=== PATIENT | male | born 1955 | race Two or more races ===

== ENCOUNTER 2019-05-19 01:39 | Inpatient (IN) | payer OTHER ==
[~2019-05-19] VITALS: Ht 165.1 cm; Wt 82.6 kg
--- NOTE | 2019-05-19 01:42 | NUR ---
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 PT AAOX4 NO ACUTE DISTRESS NOTED, RESP EVEN AND UNLABORED. SKIN WARM, NONDIAPHORETIC. PLACE PT ON CARDIAC MONITORING, CONTINUOUS POX. PENDING ER MD [place].
--- NOTE | 2019-05-19 01:54 | NUR ---
ER MD AT BEDSIDE TO EVAL PT WITH ORDERS RECEIVED.
[2019-05-19 02:17] LABS: BASOPHILS # (AUTO) 0.1 /CMM (0.0-0.2); BASOPHILS % (AUTO) 0.8 % (0.0-2.0); EOSINOPHILS % (AUTO) 3.2 % (0.0-6.0); HEMATOCRIT 46 % (39-51); HEMOGLOBIN 15.2 g/dL (13.5-17.5); LYMPHOCYTES # (AUTO) 2.5 /CMM (0.8-4.8); LYMPHOCYTES % (AUTO) 21.8 % (20.0-44.0); MEAN CORPUSCULAR HGB CONC 33 g/dl (31.0-36.0); MEAN CORPUSCULAR VOLUME 88 fL (80-96); MONOCYTES % (AUTO) 8.8 % (2.0-12.0); NEUTROPHILS # (AUTO) 7.4 /CMM (1.8-8.9); NEUTROPHILS % (AUTO) 65.4 % (43.0-81.0); PLATELET COUNT (AUTO) 426 /CMM (150-450); RED BLOOD CELL COUNT(AUTO) 5.15 MIL/uL (4.5-6.0); WHITE BLOOD COUNT (AUTO) 11.3 K/uL (4.3-11.0)
--- NOTE | 2019-05-19 02:18 | NUR ---
PT TRANSPORTED TO RADIOLOGY FOR CT HEAD.
[2019-05-19 02:28] LABS: CALCIUM, SERUM 8.8 mg/dL (8.5-10.1); CARBON DIOXIDE 24 mmol/L (21-32); CHLORIDE 104 mmol/L (98-107); CREATININE 0.9 mg/dL (0.6-1.3); GLUCOSE 123 mg/dL (74-106); POTASSIUM 4.2 mmol/L (3.5-5.1); SODIUM SERUM 140 mmol/L (136-145); UREA NITROGEN, BLOOD 19 mg/dL (7-18)
--- NOTE | 2019-05-19 02:30 | NUR ---
PT BACK FROM RADIOLOGY. PENDING CT HEAD RESULT.
[2019-05-19] MEDS ORDERED: DEXTROSE 50%-WATER 50 ML DISP.SYRIN IV PRN (04:30)
--- NOTE | 2019-05-19 04:45 | NUR ---
REPORT CALLED TO MELT SUPERINTENDANTMAREK TORRES. WILL TRANSPORT PT VIA ACLS PROTOCOL.
[2019-05-19 05:02] VITALS: BP 134/71
--- NOTE | 2019-05-19 05:05 | NUR ---
electrogalvanizing machine operatordirector of social services notes Received Pt from ER nurse ED, RN. Pt arrived at the unit by griselda via ACLS protocol. Pt's chief complaint is L arm pain and chest pain. Pt is alert and oriented X4. Respiration is normal. NO SOB. Pt denies any pain or discomfort at this time. Pt able to moved his legs and moved both of his arm without any difficulty. Pt speaks clear without any difficulty. Pt tolerated activity well. IV sites at LAC # 18g is intact, patent and SL. Pt's recent blood glucose was 106. Skin assessment done. All belongings checked by YOJANA Ramachandran. Safety precautions is maintained. Instructed to call. Bed at low position, brakes on, Side rails upX2 and call light is within reach.
[2019-05-19 05:27] LABS: CHOLESTEROL 89 mg/dL (<200); HDL CHOLESTEROL 27 mg/dL (40-60); LDL 46 mg/dL (0-99); THYROID STIMULATING HORMONE 10.079 uIU/mL (0.358-3.74); TRIGLYCERIDES 174 mg/dL (30-150)
[2019-05-19] MEDS ORDERED: LOSA50TA39 PO (06:52)
[2019-05-19] MEDS ORDERED: CLOP75TA15 PO (06:52)
[2019-05-19] MEDS ORDERED: METO-356 PO (06:52)
--- NOTE | 2019-05-19 07:00 | NUR ---
paint preparer closing notes Pt is resting in bed comfortably. Awaken easily. Respiration is normal. NO SOB. Pt denies any pain or discomfort at this time. No nausea or vomiting. IV sites at LAC is intact, patent and SL. VS is stable. Pt is on school lunch monitor - SR with PJC at 77 bpm. Stroke education and handbook given. Safety precautions is maintained. Instructed to call. Bed at low position and call light is within reach. Will endorse to morning nurse for [place].
[2019-05-19] MEDS: BLOOD SUGAR DIAGNOSTIC 1 EACH STRIP IN SCH ×4 (07:33→21:11)
--- NOTE | 2019-05-19 07:34 | NUR ---
MEASUREMENT SUPERVISOR OPENING NOTES RECEIVED PT LAYING IN BED, AWAKE. PT IS A/O X4, AFEBRILE. RESPIRATIONS ARE EVEN AND UNLABORED, NOT IN ANY ACUTE DISTRESS NOTED. PUPILS ARE REACTIVE TO LIGHT, BILATERAL HAND STUDENT COUNSELOR ARE STRONG AND EQUAL. DENIES ANY PAIN AT THIS TIME, NO C/O SOB, N/V. IV SITE TO LAC G18 INTACT, NO INFILTRATION NOTED. DRESSING KEPT CLEAN AND DRY. SAFETY MEASURES ARE IN PLACE. INSTRUCTED PT TO USE CALL LIGHT WHEN ASSISTANCE IS NEEDED, CALL LIGHT IS LEFT WITHIN REACH. WILL MONITOR THROUGHOUT SHIFT FOR CONTINUITY OF CARE. Addendum: 05/19/19 at 0738 by ANDREINA GARCIA RN CORRECTION: PT NOTED WITH LEFT SIDED WEAKNESS. PER PT HE HAS SIGNIFICANT MEDICAL HX OF STROKE. HOWEVER PT STATES THAT HE CAN WALK. INSTRUCTED PT TO USE CALL LIGHT WHEN ASSISTANCE IS NEEDED FOR SAFETY REASONS. PT VERBALLY AGREED.
[2019-05-19 08:00] VITALS: BP 128/77
[2019-05-19] MEDS: ASPIRIN 81 MG TAB.CHEW PO SCH (08:46)
[2019-05-19] MEDS ORDERED: PANT20TA3 PO (09:05)
[2019-05-19] MEDS ORDERED: ATOR20TA PO (09:05)
[2019-05-19] MEDS ORDERED: METF-442 PO (09:05)
[2019-05-19] MEDS ORDERED: METO25TA6 PO (09:05)
[2019-05-19] MEDS ORDERED: ASPI-1152 PO (09:05)
[2019-05-19] MEDS: INSULIN REGULAR, HUMAN 100 UNIT/ML 3 ML VIAL SQ PRN ×2 (11:29→21:14)
--- NOTE | 2019-05-19 15:30 | NUR ---
MS RN NOTES-- PT SEEN AND EXAMINED BY DR. DEIRDRE NICK.
[2019-05-19 16:00] VITALS: BP 129/81
--- NOTE | 2019-05-19 16:30 | NUR ---
MS RN NOTES-- PT SEEN AND EXAMINED BY DR. ROMERO.
[2019-05-19] MEDS: METOPROLOL TARTRATE 25 MG TABLET PO SCH (16:42)
[2019-05-19] MEDS ORDERED: IOHEXOL-350 100 ML VIAL IV ONE (18:57)
[2019-05-19] MEDS ORDERED: IV NS 0.9% 250 ML IV ONE (18:57)
[2019-05-19] MEDS ORDERED: CT SWABBABLE VALVE TRANS SET 1 EA INFUS.SET MC ONE (18:57)
--- NOTE | 2019-05-19 19:05 | NUR ---
RN NOTES-- CONSENTS SIGNED FOR CTA BRAIN. PT P/U BY RADIOLOGY FOR CTA BRAIN IN STABLE CONDITION VIA WHEELCHAIR.
--- NOTE | 2019-05-19 19:15 | NUR ---
MS RN NOTES-- PT CAME BACK FROM RADIOLOGY IN STABLE CONDITION VIA W/C.
--- NOTE | 2019-05-19 19:20 | NUR ---
MS RN CLOSING NOTES PT ABLE TO MAKE NEEDS KNOWN. NEEDS MET AND RENDERED. PT IS A/O 4, AFEBRILE. RESPIRATIONS ARE EVEN AND UNLABORED, NOT IN ANY ACUTE DISTRESS NOTED. PT DENIES ANY PAIN AT THIS TIME, NO C/O SOB, N/V. IV SITE TO LAC INTACT, NO INFILTRATION NOTED. DRESSING KEPT CLEAN AND DRY. SAFETY MEASURES ARE IN PLACE. REMINDED PT TO USE CALL LIGHT WHEN ASSISTANCE IS NEEDED, CALL LIGHT IS LEFT WITHIN REACH. ENDORSED TO NEXT SHIFT FOR CONTINUITY OF CARE.
--- NOTE | 2019-05-19 19:25 | NUR ---
MS RN OPENING NOTES: RECEIVED PT ON ROOM AIR AND IS TOLERATING WELL. NO SOB NOTED. NO S/S OF DISTRESS. IV ON LAC #18G REMAINS INTACT. CURRENTLY H/L. BED KEPT IN LOW, LOCKED POSITION, AND SIDE RAILS X 2UP. WILL CONTINUE TO MONITOR PT.
[2019-05-19 20:16] VITALS: BP 130/75
--- NOTE | 2019-05-19 20:37 | NUR ---
MS RN NOTES: NOTIFIED WATCH TECHNICIAN KATERNI FABIAN THAT PT IS COMPLAINING OF 7/10 TOOTH PAIN. GOT ORDER FOR IBUPROFEN 600MG PO Q6HR PAIN.
[2019-05-19] MEDS: IBUPROFEN 600 MG TABLET PO PRN (21:11)
--- NOTE | 2019-05-19 21:17 | NUR ---
MS RN NOTES: BLOOD SUGAR THIS PM WAS 139. 2 UNITS OF INSULIN WAS ADMINISTERED. SNACKS PROVIDED WELL. WILL CONTINUE TO MONITOR.
[2019-05-19] MEDS ORDERED: ATORVASTATIN 40 MG TABLET PO SCH ×2 (22:00)
[2019-05-20] MEDS: BLOOD SUGAR DIAGNOSTIC 1 EACH STRIP IN SCH ×2 (06:33→11:41)
--- NOTE | 2019-05-20 06:45 | NUR ---
MS RN CLOSING NOTES: ALL NEEDS WERE ATTENDED AND ANTICIPATED FOR. PT ASLEEP AT THIS TIME AND RESTING COMFORTABLY. NO SOB NOTED. NO S/S OF DISTRESS. IV REMAINS INTACT. CURRENTLY H/L. BED KEPT IN LOW, LOCKED POSITION, AND SIDE RAILS X 2UP. BLOOD SUGAR THIS AM WAS 118. NO INSULIN WAS ADMINISTERED. WILL ENDORSE TO AM NURSE FOR [place].
[2019-05-20 07:16] LABS: BASOPHILS % (AUTO) 0.5 % (0.0-2.0); EOSINOPHILS % (AUTO) 3.3 % (0.0-6.0); HEMATOCRIT 44 % (39-51); HEMOGLOBIN 14.6 g/dL (13.5-17.5); LYMPHOCYTES # (AUTO) 1.6 /CMM (0.8-4.8); LYMPHOCYTES % (AUTO) 18.3 % (20.0-44.0); MEAN CORPUSCULAR HGB CONC 33 g/dl (31.0-36.0); MEAN CORPUSCULAR VOLUME 88 fL (80-96); MONOCYTES # (AUTO) 0.8 /CMM (0.1-1.30); MONOCYTES % (AUTO) 9.3 % (2.0-12.0); NEUTROPHILS # (AUTO) 6.1 /CMM (1.8-8.9); NEUTROPHILS % (AUTO) 68.6 % (43.0-81.0); PLATELET COUNT (AUTO) 369 /CMM (150-450); RED BLOOD CELL COUNT(AUTO) 4.99 MIL/uL (4.5-6.0); WHITE BLOOD COUNT (AUTO) 8.9 K/uL (4.3-11.0)
[2019-05-20 07:28] LABS: CALCIUM, SERUM 8.6 mg/dL (8.5-10.1); CREATININE 0.8 mg/dL (0.6-1.3); POTASSIUM 4.3 mmol/L (3.5-5.1)
[2019-05-20] MEDS ORDERED: PANTOPRAZOLE 40 MG TABLET.DR PO SCH (07:30)
--- NOTE | 2019-05-20 07:41 | NUR ---
M/S RN OPENING NOTES RECEIVED PATIENT ON BED, A/O X4 AND ABLE TO MAKE NEEDS KNOWN. RESPIRATION EVEN AND NON LABORED WITH NO ACUTE RESPIRATORY DISTRESS. ABDOMEN SOFT AND NON DISTENDED WITH ACTIVE BOWEL SOUNDS, PT ON BRP. SKIN WARM TO TOUCH, INTACT AND DRY. DENIES PAIN AND DISCOMFORT. IV LINE AT LEFT AC GAUGE 18 WITH NO S/SX OF INFILTRATION. PLACED CALL LIGHT WITHIN REACH FOR SAFETY. WILL CONTINUE TO EVALUATE CARE.
[2019-05-20 08:00] VITALS: BP 123/65
[2019-05-20] MEDS: ASPIRIN 81 MG TAB.CHEW PO SCH (08:15)
[2019-05-20 08:16] VITALS: BP 123/65
[2019-05-20] MEDS: METOPROLOL TARTRATE 25 MG TABLET PO SCH (08:16)
[2019-05-20] MEDS ORDERED: LOSARTAN POTASSIUM 50 MG TABLET PO SCH (09:00)
[2019-05-20] MEDS ORDERED: CLOPIDOGREL BISULFATE 75 MG TABLET PO SCH (09:00)
--- NOTE | 2019-05-20 11:10 | NUR ---
M/S RN NOTES PATIENT SEEN BY SANDOVAL REYNOSO WITH NO NEW ORDER. WILL COMMUNICATE WITH NEURO DOCTOR TO REVIEW HEAD CTA IMAGES FOR POSSIBLE DISCHARGE WHEN CLEARED. PATIENT AWARE. WILL CONTINUE TO FF UP ON CARE
[2019-05-20] MEDS: INSULIN REGULAR, HUMAN 100 UNIT/ML 3 ML VIAL SQ PRN (11:48)
[2019-05-20] MEDS: IBUPROFEN 600 MG TABLET PO PRN (12:07)
--- NOTE | 2019-05-20 13:20 | NUR ---
M/S FOUNDRY TENDER NOTES PATIENT DISCHARGED ACCOMPANIED BY CANDACE (DAUGHTER) VIA PRIVATE CAR CHAPERONED BY LORETA MEADEA) TO PARKING LOT. PATIENT A/O X 4 AND ABLE TO MAKE NEEDS KNOWN, RESPONSIVE TO ALL STIMULI. ABLE TO AMBULATE WITH NO CANE IN STEADY GAIT. RESPIRATION EVEN AND NON LABORED WITH NO ACUTE RESPIRATORY DISTRESS. ABDOMEN REMAINED SOFT AND NON DISTENDED WITH ACTIVE BOWEL SOUNDS. SKIN WARM TO TOUCH, DRY AND INTACT. NO COMPLAIN OF PAIN. EXIT CARE INSTRUCTIONS PROVIDED TO PATIENT TO FF UP WITH PCP AND NEURO DOCTOR IN A WEEK, METFORMIN TO BE HELD UNTIL WEDNESDAY PM. PATIENT VERBALIZED UNDERSTANDING. REMOVED IV SITE AND TOLERATED WELL. PATIENT DISCHARGED IN STABLE CONDITION.
== END 2019-05-20 18:22 | disposition home or self-care (01) | DRG 47 ==
LOC: ER 01:41 → TELE 04:51 → MED 08:58
PROVIDERS: ADMIT Nurse Practitioner Acute Care; ATTEND Nurse Practitioner Acute Care
DX: G45.9 Transient cerebral ischemic attack, unspecified (principal); E11.51 Type 2 diabetes mellitus with diabetic peripheral angiopathy without gangrene; I69.354 Hemiplegia and hemiparesis following cerebral infarction affecting left non-dominant side; I10 Essential (primary) hypertension; D72.829 Elevated white blood cell count, unspecified; I25.10 Atherosclerotic heart disease of native coronary artery without angina pectoris; Z87.891 Personal history of nicotine dependence; Z95.5 Presence of coronary angioplasty implant and graft; I25.2 Old myocardial infarction; Z79.84 Long term (current) use of oral hypoglycemic drugs; R29.700 NIHSS score 0; Z79.02 Long term (current) use of antithrombotics/antiplatelets; E11.65 Type 2 diabetes mellitus with hyperglycemia
CPT/HCPCS: 36415; 70450-TC; 70496-TC; 71045-TC; 80048-TC; 80061-TC; 82962-TC; 83880; 84443-TC; 84484-TC; 85025-TC; 85652-TC; 85730-TC; 87081-TC; 93307-TC; 97116-TC; 97530-TC; G0378; J1815; J7050; Q9967